=== PATIENT | female | born 1995 | race American Indian/Alaskan Native ===

== ENCOUNTER 2016-07-03 12:16 | Emergency (ER) | payer MEDICAID ==
[2016-07-03 12:18] VITALS: BMI 19.3
[2016-07-03] MEDS ORDERED: Sodium Chloride 0.9% 1,000 ML IV STA ×2 (13:00→15:20)
--- NOTE | 2016-07-03 13:00 | C.PDOC ---
History Of Present Illness Patient is a 20 y/o female that presents to the ED for evaluation of abdominal pain associated with vomiting, and diarrhea since today. Pt states that she ate crabs yesterday. Pt had history of cervical CA few years ago and was treated with chemotherapy, and radiation. Otherwise, denies any fever, chills, dysuria, hematuria, back pain, or any other associated symptoms at this time. Time Seen by Provider: 07/03/16 12:35 Chief Complaint (Nursing): Abdominal Pain History Per: Patient History/Exam Limitations: no limitations Current Symptoms Are (Timing): Still Present Location Of Pain/Discomfort: Diffuse Radiation Of Pain To:: None Quality Of Discomfort: "Pain" Associated Symptoms: Vomiting, Diarrhea. denies: Fever, Chills, Loss Of Appetite, Back Pain, Chest Pain, Constipation, Urinary Symptoms Exacerbating Factors: None Alleviating Factors: None Recent travel outside of the [place]: No Additional History Per: Patient Abnormal Vaginal Bleeding: No Past Medical History Reviewed: Historical Data, Nursing Documentation, Vital Signs Vital Signs: Last Vital Signs Temp 98.3 F 07/03/16 15:42 Pulse 64 07/03/16 15:42 Resp 20 07/03/16 15:42 BP 97/60 L 07/03/16 15:42 Pulse Ox 99 07/03/16 18:07 - Medical History PMH: Anemia, Bronchitis, Malignancy ("I HAD CERVICAL CANCER") Denies: Chronic Kidney Disease - [facility] Procedures CLOSURE SKIN & SUBCUTANEOUS NEC (04/13/14) CYSTOSCOPY NEC (02/20/14) GYNECOLOGIC EXAMINATION (02/20/14) INSERTION OF TOTALLY IMPLANTABLE VASC ACCESS DEVIC (03/21/14) REPOSITION JEJUNUM, OPEN APPROACH (06/05/15) RIGID PROCTOSIGMOIDOSCOPY (02/20/14) VACCINATION NEC (02/20/14) Family History: States: Unknown Family Hx - Social History Hx Tobacco Use: No Hx Alcohol Use: No Hx Substance Use: No - Immunization History Hx Tetanus Toxoid Vaccination: No Hx Influenza Vaccination: No Hx Pneumococcal Vaccination: No Review Of Systems Except As Marked, All Systems Reviewed And Found Negative. Constitutional: Negative for: Fever, Chills Gastrointestinal: Positive for: Vomiting, Abdominal Pain, Diarrhea. Negative for: Constipation, Hematochezia, Hematemesis Genitourinary: Negative for: Dysuria, Frequency, Hematuria Musculoskeletal: Negative for: Back Pain Physical Exam - Physical Exam Appears: Non-toxic, No Acute Distress, Other (actively vomiting) Skin: Normal Color, Warm, Dry Head: Atraumatic, Normacephalic Eye(s): bilateral: Normal Inspection, EOMI Neck: Normal ROM, Supple Chest: Symmetrical Cardiovascular: Rhythm Regular Respiratory: Normal Breath Sounds, No Rales, No Rhonchi, No Wheezing Gastrointestinal/Abdominal: Soft, Tenderness (diffuse; mostly upper abdomen), No Guarding, No Rebound Neurological/Psych: Oriented x3, Normal Speech, Normal Cognition ED Course And Treatment - Laboratory Results Result Diagrams: 07/03/16 17:10 07/03/16 13:08 O2 Sat by Pulse Oximetry: 99 (on RA) Pulse Ox Interpretation: Normal Progress Note: Labs ordered and reviewed. Patient was treated with IV fluids, Zofran, Pantoprazole, and Morphine. On reassessment, patient is resting comfortably, no acute distress. Abdomen remains soft. Patient tolerates po. CBC was repeated, WBC decreased, no bands. Patient was given copies of lab reports. Patient will be d/c home with PMD follow up. Disposition - Disposition Referrals: Keke Cross MD [Staff Provider] - Disposition: HOME/ ROUTINE Disposition Time: 18:05 Condition: IMPROVED Additional Instructions: Follow up with within 2-3 days. Return to Ed immediately if feel worse. Prescriptions: Famotidine [Pepcid] 20 mg PO BID #20 tab Ondansetron [Zofran Odt] 1 - 2 tab PO .Q4-6H PRN #20 odt PRN Reason: Nausea/Vomiting Instructions: Gastroenteritis (ED) - Clinical Impression Clinical Impression: Gastroenteritis - PA / BENCH REPAIR TECHNICIAN / Resident Statement MD/DO has reviewed & agrees with the documentation as recorded. - Scribe Statement The provider has reviewed the documentation as recorded by the Kojoibcindy Dobbins All medical record entries made by the Kojoibcindy were at my direction and personally dictated by me. I have reviewed the chart and agree that the record accurately reflects my personal performance of the history, physical exam, medical decision making, and the department course for this patient. I have also personally directed, reviewed, and agree with the discharge instructions and disposition.
[2016-07-03 13:12] LABS: BASO # 0.1 K/uL (0.0-0.2); BASO % 0.3 % (0.0-2.0); EOS # 0.1 K/uL (0.0-0.7); EOS % 0.3 % (0.0-4.0); HEMATOCRIT 37.4 % (34.0-47.0); LYMPH # 0.9 K/uL (1.0-4.3); MEAN CELL VOLUME 86.2 fL (81.0-99.0); MEAN CORPUSCULAR HEMOGLOBIN 26.5 pg (27.0-31.0); MEAN CORPUSCULAR HGB CONC 30.8 g/dL (33.0-37.0); MEAN PLATELET VOLUME 11.2 fL (7.2-11.7); MONO % 5.8 % (0.0-10.0); PLATELET COUNT 195 K/uL (130-400); RED CELL DISTRIBUTION WIDTH 13.8 % (11.5-14.5); WHITE BLOOD COUNT 17.6 K/uL (4.8-10.8)
[2016-07-03] MEDS ORDERED: Morphine 4 MG/ML VIAL ONE (13:19)
[2016-07-03] MEDS ORDERED: Sodium Chloride 0.9% 1,000 ML ONE (13:20)
[2016-07-03 13:26] LABS: CHLORIDE 103 mmol/L (98-107); POTASSIUM 3.5 mmol/L (3.6-5.2); SODIUM 140 mmol/L (132-148)
[2016-07-03 13:28] LABS: ALB/GLOB RATIO 1.3 (1.0-2.1); ALKALINE PHOSPHATASE 76 U/L (38-126); AMYLASE 136 U/L (30-110); AST/SGOT 23 U/L (14-36); BILIRUBIN,TOTAL 0.3 mg/dL (0.2-1.3); BLOOD UREA NITROGEN 21 mg/dL (7-17); CARBON DIOXIDE 19 mmol/L (22-30); GFR AFRICAN-AMERICAN > 60; GLUCOSE,RANDOM 136 mg/dL (65-105); NEUTROPHIL 81 % (50-75); TOTAL CELLS COUNTED 100; TOTAL PROTEIN 7.6 g/dL (6.3-8.3)
[2016-07-03 13:29] LABS: ALT/SGPT 19 U/L (9-52); CALCIUM 9.6 mg/dl (8.6-10.4); LARGE PLATELETS PRESENT
[2016-07-03 16:20] LABS: RBC URINE 3 /hpf (0-3); URINE BACTERIA RARE (<OCC); URINE BILIRUBIN NEGATIVE (NEGATIVE); URINE BLOOD NEGATIVE (NEGATIVE); URINE COLOR Yellow (YELLOW); URINE GLUCOSE (UA) NORMAL (Normal); URINE KETONE NEGATIVE (NEGATIVE); URINE LEUKOCYTE ESTERASE NEG Leu/uL (Negative); URINE PROTEIN NEGATIVE (NEGATIVE); URINE UROBILINOGEN NORMAL mg/dL (0.2-1.0); WBC URINE 12 /hpf (0-5)
[2016-07-03 17:13] LABS: BASO # 0.1 K/uL (0.0-0.2); BASO % 0.5 % (0.0-2.0); EOS % 0.1 % (0.0-4.0); HEMATOCRIT 30.7 % (34.0-47.0); LYMPH # 0.4 K/uL (1.0-4.3); LYMPH % 3.8 % (20.0-40.0); MEAN CELL VOLUME 85.4 fL (81.0-99.0); MEAN CORPUSCULAR HEMOGLOBIN 26.5 pg (27.0-31.0); MEAN CORPUSCULAR HGB CONC 31.1 g/dL (33.0-37.0); MEAN PLATELET VOLUME 10.3 fL (7.2-11.7); MONO # 0.3 K/uL (0.0-0.8); MONO % 2.6 % (0.0-10.0); PLATELET COUNT 145 K/uL (130-400); RED CELL DISTRIBUTION WIDTH 13.8 % (11.5-14.5); WHITE BLOOD COUNT 11.4 K/uL (4.8-10.8)
[2016-07-03 17:35] LABS: NEUTROPHIL 95 % (50-75); TOTAL CELLS COUNTED 100
[2016-07-03 17:36] LABS: LARGE PLATELETS PRESENT
[2016-07-03 18:22] VITALS: BP 100/61; PULSE 75; RESP 18; TEMP 98.6; O2SAT 100
== END 2016-07-03 18:22 | disposition home or self-care (01) ==
LOC: C.ER 12:16
DX: K52.9 Noninfective gastroenteritis and colitis, unspecified (principal)
CPT/HCPCS: 80053; 81001; 82150; 83690; 84703; 85025; 96361; 96374; 96375; 99285; C9113; J2270; J2405; J7040

== ENCOUNTER 2016-10-13 13:06 | Emergency (ER) | payer MEDICAID ==
[2016-10-13 13:07] VITALS: BMI 19.3
[2016-10-13 13:19] VITALS: RESP 20
[2016-10-13] MEDS ORDERED: Sodium Chloride 0.9% 1,000 ML ONE (13:39)
[2016-10-13] MEDS ORDERED: Sodium Chloride 0.9% 1,000 ML IV ONE (13:42)
[2016-10-13 14:04] LABS: BASO % 0.4 % (0.0-2.0); EOS # 0.1 K/uL (0.0-0.7); EOS % 0.8 % (0.0-4.0); HEMOGLOBIN 10.9 g/dL (11.0-16.0); LYMPH # 0.7 K/uL (1.0-4.3); LYMPH % 9.4 % (20.0-40.0); MEAN CELL VOLUME 86.7 fL (81.0-99.0); MEAN CORPUSCULAR HEMOGLOBIN 27.6 pg (27.0-31.0); MEAN CORPUSCULAR HGB CONC 31.8 g/dL (33.0-37.0); MONO # 0.1 K/uL (0.0-0.8); MONO % 1.2 % (0.0-10.0); NEUT # 6.7 K/uL (1.8-7.0); NEUT % 88.2 % (50.0-75.0); PLATELET COUNT 188 K/uL (130-400); RBC 3.97 Mil/uL (3.80-5.20); WHITE BLOOD COUNT 7.6 K/uL (4.8-10.8)
--- NOTE | 2016-10-13 14:05 | RAD ---
HISTORY: FEVER COMPARISON: CT chest abdomen pelvis with contrast performed 02/20/14 TECHNIQUE: Chest, one view. FINDINGS: LUNGS: No focal consolidation. Please note that chest x-ray has limited sensitivity for the detection of pulmonary masses. PLEURA: No significant pleural effusion identified. No definite pneumothorax . CARDIOVASCULAR: Heart size appears within normal limits. OSSEOUS STRUCTURES: No acute osseous abnormality identified. VISUALIZED UPPER ABDOMEN: Unremarkable. OTHER FINDINGS: None. IMPRESSION: No focal consolidation, significant pleural effusion, or definite pneumothorax identified.
[2016-10-13 14:10] LABS: HCG,QUALITATIVE URINE NEGATIVE (NEGATIVE)
[2016-10-13 14:15] LABS: ALBUMIN 4.1 g/dL (3.5-5.0)
[2016-10-13 14:18] LABS: ALB/GLOB RATIO 1.2 (1.0-2.1); AST/SGOT 20 U/L (14-36); BLOOD UREA NITROGEN 19 mg/dL (7-17); GFR AFRICAN-AMERICAN > 60; GFR NON-AFRICAN AMERICAN > 60
[2016-10-13 14:19] LABS: ALT/SGPT 20 U/L (9-52); CALCIUM 9.6 mg/dl (8.6-10.4)
[2016-10-13 14:20] LABS: SQUAMOUS EPITHIAL 2 /hpf (0-5); URINE BILIRUBIN NEGATIVE (NEGATIVE); URINE BLOOD 2+ (NEGATIVE); URINE CLARITY Clear (Clear); URINE COLOR Yellow (YELLOW); URINE GLUCOSE (UA) NORMAL (Normal); URINE LEUKOCYTE ESTERASE NEG Leu/uL (Negative); URINE NITRATE NEGATIVE (NEGATIVE); URINE PROTEIN NEGATIVE (NEGATIVE); URINE UROBILINOGEN NORMAL mg/dL (0.2-1.0)
[2016-10-13 14:38] LABS: BANDS 1 % (0-2); EOSINOPHIL 1 % (0-4); LYMPHOCYTE 8 % (20-40); NEUTROPHIL 90 % (50-75); PLATELET ESTIMATE NORMAL (NORMAL); TOTAL CELLS COUNTED 100
--- NOTE | 2016-10-13 15:33 | C.PDOC ---
History Of Present Illness 21 y/o female presents to the ED with complaints of body aches, fever, and chills since earlier today while at work. Pt has hx of cervical CA, currently in remission s/p chemotherapy and radiation (last treatment 2 years ago). 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 She denies cough, runny nose, sore throat, vomiting, diarrhea, dysuria/hematuria, vaginal discharge. Time Seen by Provider: 10/13/16 13:31 Chief Complaint (Nursing): Flu-like Symptoms History Per: Patient History/Exam Limitations: no limitations Onset/Duration Of Symptoms: Hrs Current Symptoms Are (Timing): Still Present Location Of Pain: Diffuse Myalgias Sick Contacts (Context): None Associated Symptoms: Fever, Chills. denies: Sore Throat, Cough, Vomiting, Diarrhea Severity: Moderate Past Medical History Reviewed: Historical Data, Nursing Documentation, Vital Signs Vital Signs: Last Vital Signs Temp 98.8 F 10/13/16 15:46 Pulse 103 H 10/13/16 15:46 Resp 20 10/13/16 15:46 BP 108/60 10/13/16 15:46 Pulse Ox 98 10/13/16 15:46 - Medical History PMH: Anemia, Bronchitis, Malignancy ("I HAD CERVICAL CANCER") - [facility] Procedures CLOSURE SKIN & SUBCUTANEOUS NEC (04/13/14) CYSTOSCOPY NEC (02/20/14) GYNECOLOGIC EXAMINATION (02/20/14) INSERTION OF TOTALLY IMPLANTABLE VASC ACCESS DEVIC (03/21/14) REPOSITION JEJUNUM, OPEN APPROACH (06/05/15) RIGID PROCTOSIGMOIDOSCOPY (02/20/14) VACCINATION NEC (02/20/14) Family History: States: No Known Family Hx - Social History Hx Tobacco Use: No Hx Alcohol Use: No Hx Substance Use: No - Immunization History Hx Tetanus Toxoid Vaccination: No Hx Influenza Vaccination: No Hx Pneumococcal Vaccination: No Review Of Systems Except As Marked, All Systems Reviewed And Found Negative. Constitutional: Positive for: Fever, Chills, Other (myalgias) ENT: Negative for: Nose Discharge, Throat Pain Cardiovascular: Negative for: Chest Pain, Palpitations Respiratory: Negative for: Cough, Shortness of Breath Gastrointestinal: Negative for: Nausea, Vomiting, Abdominal Pain, Diarrhea Genitourinary: Negative for: Dysuria, Hematuria, Vaginal Discharge, Vaginal Bleeding Physical Exam - Physical Exam Appears: Well, Non-toxic, In Acute Distress (mildly uncomfortable, shivering) Skin: Warm, Dry, No Rash Head: Normacephalic Ear(s): Bilateral: Normal Nose: Normal Oral Mucosa: Moist Throat: Normal, No Erythema Neck: Normal, Normal ROM, Supple Cardiovascular: Rhythm Regular (mildly tachycardic ) Respiratory: Normal Breath Sounds, No Rales, No Rhonchi, No Wheezing Gastrointestinal/Abdominal: Normal Exam, Bowel Sounds, Soft, No Tenderness Back: No CVA Tenderness Extremity: Normal ROM Extremity: Bilateral: Atraumatic Neurological/Psych: Oriented x3 ED Course And Treatment - Laboratory Results Result Diagrams: 10/13/16 13:59 10/13/16 13:59 O2 Sat by Pulse Oximetry: 99 (room air) Pulse Ox Interpretation: Normal - Radiology CXR: Interpreted by Me, Viewed By Me CXR Interpretation: Yes: No Acute Disease. No: Infiltrates Progress Note: Plan: Blood work, UA, CXR ordered and reviewed. Patient given IV NS bolus, IV toadol, PO tylenol. Reevaluation Time: 15:35 Reassessment Condition: Improved (On reassessment, patient is resting comfortably and states she feels much better. Fever has dropped appropriately, and CXR/UA unremarkable. Symptoms likely due to viral syndrome. Patient given Rx for Naprosyn, and was instructed to drink plenty of fluids, get rest, and follow up with PMD in 1-2 days. She understands she should return to Ed if symptoms worsen.) Disposition Counseled Patient/Family Regarding: Studies Performed, Diagnosis, Need For Followup, Rx Given - Disposition Referrals: Keke Cross MD [Staff Provider] - Disposition: HOME/ ROUTINE Disposition Time: 15:35 Condition: STABLE Additional Instructions: FOLLOW UP WITH YOUR DOCTOR IN 1-2 DAYS USE MEDICATION NEEDED FOR FEVER/PAIN DRINK PLENTY OF FLUIDS RETURN TO ER IF SYMPTOMS WORSEN Prescriptions: Naproxen [Naprosyn Tab] 375 mg PO BID PRN #20 tab PRN Reason: pain Instructions: Viral Syndrome (ED) Forms: Work Excuse Print Language: PORTUGUESE - POA Present On Arrival: None - Clinical Impression Clinical Impression: Viral syndrome - Scribe Statement The provider has reviewed the documentation as recorded by the Tod Dixon Provider Attestation: All medical record entries made by the Scribe were at my direction and personally dictated by me. I have reviewed the chart and agree that the record accurately reflects my personal performance of the history, physical exam, medical decision making, and the department course for this patient. I have also personally directed, reviewed, and agree with the discharge instructions and disposition.
[2016-10-13 15:46] VITALS: BP 108/60; PULSE 103; TEMP 98.8
[2016-10-17 17:37] VITALS: O2SAT 99
== END 2016-10-13 15:48 | disposition home or self-care (01) ==
LOC: C.ER 13:06
DX: B34.9 Viral infection, unspecified (principal)
CPT/HCPCS: 71010; 80053; 81001; 84703; 85025; 87040; 87086; 96361; 96374; 99283; J1885; J7040

== ENCOUNTER 2016-11-17 17:43 | Emergency (ER) | payer MEDICAID ==
[2016-11-17 17:43] VITALS: BMI 19.3
[2016-11-17 17:50] VITALS: O2SAT 100
[2016-11-17 18:21] LABS: RBC URINE 3 /hpf (0-3); URINE BILIRUBIN NEGATIVE (NEGATIVE); URINE BLOOD 1+ (NEGATIVE); URINE COLOR Straw (YELLOW); URINE GLUCOSE (UA) NORMAL (Normal); URINE KETONE NEGATIVE (NEGATIVE); URINE LEUKOCYTE ESTERASE NEG Leu/uL (Negative); URINE PROTEIN NEGATIVE (NEGATIVE); URINE UROBILINOGEN NORMAL mg/dL (0.2-1.0); WBC URINE 2 /hpf (0-5)
[2016-11-17 18:43] LABS: BASO % 0.6 % (0.0-2.0); EOS # 0.2 K/uL (0.0-0.7); EOS % 2.9 % (0.0-4.0); HEMATOCRIT 35.1 % (34.0-47.0); LYMPH # 1.5 K/uL (1.0-4.3); MEAN CELL VOLUME 86.3 fL (81.0-99.0); MEAN CORPUSCULAR HEMOGLOBIN 28.1 pg (27.0-31.0); MEAN CORPUSCULAR HGB CONC 32.5 g/dL (33.0-37.0); MEAN PLATELET VOLUME 10.5 fL (7.2-11.7); MONO # 0.5 K/uL (0.0-0.8); MONO % 6.4 % (0.0-10.0); NRBC % 0.1 % (0.0-2.0); RED CELL DISTRIBUTION WIDTH 13.9 % (11.5-14.5); WHITE BLOOD COUNT 7.3 K/uL (4.8-10.8)
--- NOTE | 2016-11-17 18:43 | C.PDOC ---
History Of Present Illness 21 y/o female with Hx of treated Cervical cancer presents to ED with complaints of rectal bleeding for 4 days. Patient states she noticed blood in stool with every bowel movement when cleaning with paper. Patient reports past occasional fissure type tears but not like this and denies rectal pain, abdominal pain, dizziness, sob, cough or any other complaints at this time. Time Seen by Provider: 11/17/16 17:50 Chief Complaint (Nursing): GI Problem History Per: Patient History/Exam Limitations: no limitations Onset/Duration Of Symptoms: Days Current Symptoms Are (Timing): Still Present Past Medical History Reviewed: Historical Data, Nursing Documentation, Vital Signs Vital Signs: Last Vital Signs Temp 98.7 F 11/17/16 17:49 Pulse 74 11/17/16 17:49 Resp 18 11/17/16 17:49 BP 112/77 11/17/16 17:49 Pulse Ox 100 11/17/16 18:46 - Medical History PMH: Anemia, Bronchitis, Malignancy ("I HAD CERVICAL CANCER") - [facility] Procedures CLOSURE SKIN & SUBCUTANEOUS NEC (04/13/14) CYSTOSCOPY NEC (02/20/14) GYNECOLOGIC EXAMINATION (02/20/14) INSERTION OF TOTALLY IMPLANTABLE VASC ACCESS DEVIC (03/21/14) REPOSITION JEJUNUM, OPEN APPROACH (06/05/15) RIGID PROCTOSIGMOIDOSCOPY (02/20/14) VACCINATION NEC (02/20/14) Family History: States: Unknown Family Hx - Social History Hx Tobacco Use: No Hx Alcohol Use: No Hx Substance Use: No - Immunization History Hx Tetanus Toxoid Vaccination: No Hx Influenza Vaccination: No Hx Pneumococcal Vaccination: No Review Of Systems Except As Marked, All Systems Reviewed And Found Negative. Constitutional: Negative for: Fever, Chills Respiratory: Negative for: Shortness of Breath Gastrointestinal: Positive for: Hematochezia. Negative for: Nausea, Vomiting, Abdominal Pain, Diarrhea, Rectal Pain Musculoskeletal: Negative for: Back Pain Skin: Negative for: Rash Neurological: Negative for: Dizziness Physical Exam - Physical Exam Appears: Non-toxic, No Acute Distress Skin: Normal Color, Warm, No Rash Head: Atraumatic Oral Mucosa: Moist Chest: Symmetrical Cardiovascular: Rhythm Regular Respiratory: Normal Breath Sounds, No Rales, No Rhonchi, No Wheezing Gastrointestinal/Abdominal: Soft, No Tenderness, No Guarding, No Rebound Rectal: Normal Exam, Other (No trauma, no tears noted) Neurological/Psych: Oriented x3, Normal Speech, Normal Cognition ED Course And Treatment - Laboratory Results Result Diagrams: 11/17/16 18:37 11/17/16 18:37 Lab Interpretation: Normal O2 Sat by Pulse Oximetry: 100 (RA) Pulse Ox Interpretation: Normal Reevaluation Time: 19:09 Reassessment Condition: Improved (Stool guaiac negative in ED and exam is normal.) Disposition - Disposition Disposition: HOME/ ROUTINE Disposition Time: 19:09 Condition: IMPROVED Instructions: Rectal Bleeding (ED) Forms: [place] (Bulgarian) - Clinical Impression Clinical Impression: Rectal bleeding - Scribe Statement The provider has reviewed the documentation as recorded by the Kojoibcindy Stevenson All medical record entries made by the Kojoibcindy were at my direction and personally dictated by me. I have reviewed the chart and agree that the record accurately reflects my personal performance of the history, physical exam, medical decision making, and the department course for this patient. I have also personally directed, reviewed, and agree with the discharge instructions and disposition.
[2016-11-17 18:55] LABS: CHLORIDE 104 mmol/L (98-107); POTASSIUM 3.5 mmol/L (3.6-5.2); SODIUM 141 mmol/L (132-148)
[2016-11-17 18:57] LABS: BILIRUBIN,TOTAL 0.5 mg/dL (0.2-1.3); GFR AFRICAN-AMERICAN > 60
[2016-11-17 18:58] LABS: ALB/GLOB RATIO 1.3 (1.0-2.1); ALKALINE PHOSPHATASE 79 U/L (38-126); ALT/SGPT 27 U/L (9-52); AST/SGOT 21 U/L (14-36); BLOOD UREA NITROGEN 13 mg/dL (7-17); CARBON DIOXIDE 25 mmol/L (22-30); GLUCOSE,RANDOM 72 mg/dL (65-105); TOTAL PROTEIN 7.1 g/dL (6.3-8.3)
[2016-11-17 18:59] LABS: CALCIUM 9.2 mg/dl (8.6-10.4)
[2016-11-17 19:25] VITALS: BP 108/64; PULSE 70; RESP 16; TEMP 98.2
== END 2016-11-17 19:25 | disposition home or self-care (01) ==
LOC: C.ER 17:43
DX: K92.1 Melena (principal)
CPT/HCPCS: 80053; 81001; 84703; 85025; 85610; 85730; 99284; G0328

== ENCOUNTER 2016-11-21 09:08 | Observation (INO) | payer MEDICAID ==
[2016-11-21 09:17] VITALS: BMI 19.7
--- NOTE | 2016-11-21 09:27 | C.PDOC ---
History Of Present Illness 21 yo female w/PMHx of cervical CA come in for evaluation of epigastric pain, N/ V/D developed since 3 AM today " after had bad shrimp". Pt sts, " it smelled bad and I just tasted it, not even swallow". Pt sts, had multiple episodes of watery diarrhea and vomiting. Denies fever, chills, weakness, CP, SOB, wheezing , throat swelling or tightness. hematemesis, melena, hematoschezia, back pain, UTi sx, rash. AT the time of evaluation, pt is actively vomiting. records from previous ED visits review, last visit was on 11/17/16 when pt was evaluated due to rectal bleeding r/o hemorrhoids. Time Seen by Provider: 11/21/16 09:18 Chief Complaint (Nursing): Abdominal Pain History Per: Patient History/Exam Limitations: no limitations Onset/Duration Of Symptoms: Hrs Current Symptoms Are (Timing): Still Present Location Of Pain/Discomfort: Epigastric Radiation Of Pain To:: None Quality Of Discomfort: "Pain" Associated Symptoms: Nausea, Vomiting, Diarrhea. denies: Fever, Chills, Loss Of Appetite, Back Pain, Chest Pain, Constipation, Urinary Symptoms Exacerbating Factors: None Alleviating Factors: None Recent travel outside of the [place]: No Additional History Per: Patient Past Medical History Reviewed: Historical Data, Nursing Documentation, Vital Signs Vital Signs: Last Vital Signs Temp 98.5 F 11/21/16 13:47 Pulse 70 11/21/16 13:47 Resp 18 11/21/16 13:47 BP 112/70 11/21/16 13:47 Pulse Ox 99 11/21/16 14:09 - Medical History PMH: Anemia, Bronchitis, Malignancy ("I HAD CERVICAL CANCER") Denies: Chronic Kidney Disease - [facility] Procedures CLOSURE SKIN & SUBCUTANEOUS NEC (04/13/14) CYSTOSCOPY NEC (02/20/14) GYNECOLOGIC EXAMINATION (02/20/14) INSERTION OF TOTALLY IMPLANTABLE VASC ACCESS DEVIC (03/21/14) REPOSITION JEJUNUM, OPEN APPROACH (06/05/15) RIGID PROCTOSIGMOIDOSCOPY (02/20/14) VACCINATION NEC (02/20/14) Family History: States: Unknown Family Hx - Social History Hx Tobacco Use: No Hx Alcohol Use: No Hx Substance Use: No - Immunization History Hx Tetanus Toxoid Vaccination: No Hx Influenza Vaccination: No Hx Pneumococcal Vaccination: No Review Of Systems Except As Marked, All Systems Reviewed And Found Negative. Constitutional: Negative for: Fever, Chills Cardiovascular: Negative for: Chest Pain, Palpitations Respiratory: Negative for: Cough, Shortness of Breath, Wheezing Gastrointestinal: Positive for: Nausea, Vomiting, Abdominal Pain (epigastric), Diarrhea. Negative for: Constipation, Melena, Hematochezia, Hematemesis, Rectal Pain Genitourinary: Negative for: Dysuria, Frequency, Hematuria, Vaginal Discharge, Vaginal Bleeding Musculoskeletal: Negative for: Back Pain Skin: Negative for: Rash, Bruising Neurological: Negative for: Headache, Dizziness Physical Exam - Physical Exam Appears: Well, Non-toxic, Other (vomiting) Skin: Normal Color, Warm, Dry, No Rash Eye(s): bilateral: PERRL Nose: No Flaring, No Discharge Throat: No Drooling, Other (Uvula midline, no edema.) Neck: Normal, Supple Cardiovascular: Rhythm Regular, No Friction Rub, No Murmur, No JVD Respiratory: No Decreased Breath Sounds, No Accessory Muscle Use, No Rales, No Rhonchi, No Stridor, No Wheezing Gastrointestinal/Abdominal: Soft, Tenderness (mild epigastric), No Distention, No Guarding, No Rebound Back: No CVA Tenderness Extremity: No Pedal Edema, No Deformity Neurological/Psych: Oriented x3, Normal Speech ED Course And Treatment - Laboratory Results Result Diagrams: 11/21/16 09:46 11/21/16 09:46 O2 Sat by Pulse Oximetry: 99 (RA) Pulse Ox Interpretation: Normal Progress Note: Blood work, urinalysis ordered and reviewed. Patient was given Pepcid, Zofran, and IV fluids. ED OBSERVATION Discharge: Yes Date of observation admission: 11/21/16 Time of observation admission: 09:57 - Observation admission statement Patient is being placed in observation because:: Abdominal pain, N/V/D - Goals of Observation Goals of observation are:: Diagnostics, sx tx, re-evaluation - Progress Note Progress Note: 11/21/16 At 10:48, pt resting in bed. Pt still c/o nausea and epigastric pain, reports had one episode of vomiting. Afebrile, hemodynamicaly stable. Non-toxic. Abd: benign, (-) guarding, (-) rebound. back: (-) CVA tenderness. Blood work review- appears without acute abnormalities. Await for UA. At 12:28, pt resting comfortably, not in any apparent distress. ABd: benign. Blodo work review and appears normal. UA- normal study. At 13:31, pt reports, " feels better". Pt was given PO challenge and tolerate well. Afebrile, hemodynamicaly stable. Non-toxic. Abd: benign, (-) guarding, (-) rebound. back: (-) CVA tenderness. Pt has clinical findings c/w vomiting, diarrhea. Pt advised on course of ds. ref. to f/u with PMD in 2-3 days for re-eval. return to ED if any worsening or new changes. Disposition Counseled Patient/Family Regarding: Studies Performed, Diagnosis, Need For Followup, Rx Given - Disposition Disposition: HOME/ ROUTINE Disposition Time: 13:35 Condition: STABLE - Clinical Impression Clinical Impression: Epigastric abdominal pain, Vomiting, Diarrhea - PA / USER EXPERIENCE ARCHITECT / Resident Statement MD/DO has reviewed & agrees with the documentation as recorded. - Scribe Statement The provider has reviewed the documentation as recorded by the Kojoibe Elias Dobbins All medical record entries made by the Tod were at my direction and personally dictated by me. I have reviewed the chart and agree that the record accurately reflects my personal performance of the history, physical exam, medical decision making, and the department course for this patient. I have also personally directed, reviewed, and agree with the discharge instructions and disposition.
[2016-11-21] MEDS ORDERED: Sodium Chloride 0.9% 1,000 ML IV ONE (09:39)
[2016-11-21] MEDS ORDERED: Sodium Chloride 0.9% 1,000 ML ONE (09:42)
[2016-11-21 10:00] LABS: BASO % 0.3 % (0.0-2.0); EOS # 0.1 K/uL (0.0-0.7); EOS % 0.6 % (0.0-4.0); HEMATOCRIT 34.6 % (34.0-47.0); LYMPH # 1.4 K/uL (1.0-4.3); MEAN CELL VOLUME 85.4 fL (81.0-99.0); MEAN CORPUSCULAR HEMOGLOBIN 27.4 pg (27.0-31.0); MEAN CORPUSCULAR HGB CONC 32.1 g/dL (33.0-37.0); MEAN PLATELET VOLUME 10.9 fL (7.2-11.7); MONO # 0.4 K/uL (0.0-0.8); MONO % 3.8 % (0.0-10.0); RED CELL DISTRIBUTION WIDTH 13.4 % (11.5-14.5); WHITE BLOOD COUNT 11.5 K/uL (4.8-10.8)
[2016-11-21 10:05] LABS: CHLORIDE 107 mmol/L (98-107); POTASSIUM 3.4 mmol/L (3.6-5.2); SODIUM 140 mmol/L (132-148)
[2016-11-21 10:07] LABS: BILIRUBIN,TOTAL 0.4 mg/dL (0.2-1.3); GFR AFRICAN-AMERICAN > 60
[2016-11-21 10:08] LABS: ALB/GLOB RATIO 1.3 (1.0-2.1); ALKALINE PHOSPHATASE 88 U/L (38-126); ALT/SGPT 29 U/L (9-52); AST/SGOT 21 U/L (14-36); BLOOD UREA NITROGEN 12 mg/dL (7-17); CALCIUM 9.5 mg/dl (8.6-10.4); CARBON DIOXIDE 21 mmol/L (22-30); GLUCOSE,RANDOM 143 mg/dL (65-105); TOTAL PROTEIN 6.8 g/dL (6.3-8.3)
[2016-11-21 11:23] LABS: RBC URINE 1 /hpf (0-3); URINE BILIRUBIN NEGATIVE (NEGATIVE); URINE BLOOD NEGATIVE (NEGATIVE); URINE COLOR Yellow (YELLOW); URINE GLUCOSE (UA) NORMAL (Normal); URINE HYALINE CAST 0-2 /lpf (0-2); URINE KETONE NEGATIVE (NEGATIVE); URINE LEUKOCYTE ESTERASE NEG Leu/uL (Negative); URINE PROTEIN NEGATIVE (NEGATIVE); URINE UROBILINOGEN NORMAL mg/dL (0.2-1.0); WBC URINE 1 /hpf (0-5)
[2016-11-21 13:47] VITALS: BP 112/70; PULSE 70; RESP 18; TEMP 98.5
[2016-11-21 14:09] VITALS: O2SAT 99
== END 2016-11-21 13:32 | disposition home or self-care (01) ==
LOC: C.ER 09:08 → C.9OBSV 09:45
PROVIDERS: ADMIT Emergency Medicine; ATTEND Emergency Medicine
DX: R10.13 Epigastric pain (principal); R19.7 Diarrhea, unspecified; R11.10 Vomiting, unspecified
CPT/HCPCS: 80053; 81001; 83690; 84703; 85025; 96360; 96374; C9113; G0378; J1885; J2405; J2765; J7040

== ENCOUNTER 2018-03-16 12:43 | Emergency (ER) | payer MEDICAID ==
[2018-03-16 12:44] VITALS: BMI 19.7
[2018-03-16 12:56] VITALS: TEMP 99.4
[2018-03-16 14:07] LABS: BASO # 0.1 K/uL (0.0-0.2); BASO % 0.8 % (0.0-2.0); EOS # 0.1 K/uL (0.0-0.7); EOS % 2.2 % (0.0-4.0); HEMOGLOBIN 11.9 g/dL (11.0-16.0); LYMPH % 14.8 % (20.0-40.0); MEAN CORPUSCULAR HEMOGLOBIN 28.4 pg (27.0-31.0); MEAN CORPUSCULAR HGB CONC 32.6 g/dL (33.0-37.0); MEAN PLATELET VOLUME 11.3 fL (7.2-11.7); MONO # 0.5 K/uL (0.0-0.8); MONO % 7.4 % (0.0-10.0); NEUT % 74.8 % (50.0-75.0); RBC 4.21 Mil/uL (3.80-5.20); RED CELL DISTRIBUTION WIDTH 13.9 % (11.5-14.5); WHITE BLOOD COUNT 6.7 K/uL (4.8-10.8)
--- NOTE | 2018-03-16 14:07 | C.PDOC ---
History Of Present Illness 22 year old female presents to the ED via EMS for evaluation of vaginal bleeding with suprapubic pain immediately after relations 2-3 days ago. The patient reports prior vaginal bleeding after remission. She has not taken medication for the pain. Denies fever, nausea, vomiting, back pain, or any other associated symptoms. Time Seen by Provider: 03/16/18 13:24 Chief Complaint (Nursing): Female Genitourinary History Per: Patient History/Exam Limitations: no limitations Onset/Duration Of Symptoms: Days Current Symptoms Are (Timing): Still Present Past Medical History Reviewed: Historical Data, Nursing Documentation, Vital Signs Vital Signs: Last Vital Signs Temp 99.4 F 03/16/18 12:46 Pulse 71 03/16/18 12:46 Resp 18 03/16/18 12:46 BP 153/108 H 03/16/18 12:46 Pulse Ox 100 03/16/18 12:46 - Medical History PMH: Anemia, Bronchitis, Malignancy ("I HAD CERVICAL CANCER") Denies: Chronic Kidney Disease - [facility] Procedures CLOSURE SKIN & SUBCUTANEOUS NEC (04/13/14) CYSTOSCOPY NEC (02/20/14) GYNECOLOGIC EXAMINATION (02/20/14) INSERTION OF TOTALLY IMPLANTABLE VASC ACCESS DEVIC (03/21/14) REPOSITION JEJUNUM, OPEN APPROACH (06/05/15) RIGID PROCTOSIGMOIDOSCOPY (02/20/14) VACCINATION NEC (02/20/14) Family History: States: Unknown Family Hx - Social History Hx Tobacco Use: No Hx Alcohol Use: No Hx Substance Use: No - Immunization History Hx Tetanus Toxoid Vaccination: No Hx Influenza Vaccination: No Hx Pneumococcal Vaccination: No Review Of Systems Except As Marked, All Systems Reviewed And Found Negative. Constitutional: Negative for: Fever Gastrointestinal: Positive for: Abdominal Pain (suprapubic.). Negative for: Nausea, Vomiting Genitourinary: Positive for: Vaginal Bleeding Musculoskeletal: Negative for: Back Pain Physical Exam - Physical Exam Additional Physical Exam Comments: Gen: VS reviewed, alert, well developed, well nourished, nontoxic, mild distress Eye: EOMI, PERRL Neck: no JVD, supple, no adenopathy CV: regular rate, regular rhythm, no rubs,no murmur, S1, S2 Pulm: no distress, clear to auscultation, no wheeze, no rhonchi, breath sounds equal, no rales Abd: soft, nontender, no guarding, no rebound, no rigidity Extremities: no edema Skin: good color, no rash, no cyanosis Psych: responds appropriately to questions, normal affect Neuro: oriented x3, CN2-12 intact grossly, motor intact, sensation intact ED Course And Treatment - Laboratory Results Result Diagrams: 03/16/18 13:58 O2 Sat by Pulse Oximetry: 100 (RA) Pulse Ox Interpretation: Normal Medical Decision Making Medical Decision Making: Plan: -Blood sent. POC Urine Preg. Pelvic Exam US Transvag 1500: pelvic exam female rn surgical Haroon french: there was a thick white cervical discharge on inspection, no foul odor, there was positive CMT, no overt adnexal tenderness. in retrospect, there was adnexal massess on TVUS to suggest TOA. patient admits to hx of chlamydia, will empirically tx for PID, no s/s of sepsis, patient appears stable for outpt tx and states that she can see her gyn physician tomorrow. Disposition - Disposition Disposition: HOME/ ROUTINE Disposition Time: 15:26 Condition: STABLE Additional Instructions: Return for any new or worsenign symptoms especially fever greater than 100.4, worsening pain. Call your poundmaster today or tomorrow to make an appointment. BETHANY MONTGOMERY, thank you for letting us take care of you today. Your provider was Dr. Jeffrey Rodriguez and you were treated for VAGINAL BLEEDING/PID. The emergency medical care you received today was directed at your acute symptoms. If you were prescribed any medication, please fill it and take as directed. It may take several days for your symptoms to resolve. Return to the Emergency Department if your symptoms worsen, do not improve, or if you have any other problems. Please contact your doctor or call one of the physicians/clinics you have been referred to that are listed on the Patient Visit Information form that is included in your discharge packet. Bring any paperwork you were given at d ischarge with you along with any medications you are taking to your follow up visit. Our treatment cannot replace ongoing medical care by a primary care provider outside of the emergency department. Thank you for allowing the [facility] team to be part of your care today. If you had an X-Ray or CT scan: A Radiologist will review the ED reading if any change in treatment is needed we will contact you. If you had a blood, urine, or wound culture: It will take several days for the results, if any change in treatment is needed we will contact you. If you had an STI test: It will take 48 hours for the results. Please call after 1 week if you have not heard back. Instructions: Pelvic Inflammatory Disease Forms: [facility] (Czech), Work/School/Gym Excuse - Clinical Impression Clinical Impression: PID (acute pelvic inflammatory disease) - Scribe Statement The provider has reviewed the documentation as recorded by the Scribe (Stephani Tran) Provider Attestation: All medical record entries made by the Scribe were at my direction and personally dictated by me. I have reviewed the chart and agree that the record accurately reflects my personal performance of the history, physical exam, medical decision making, and the department course for this patient. I have also personally directed, reviewed, and agree with the discharge instructions and disposition.
--- NOTE | 2018-03-16 15:07 | US ---
Date of service: 03/16/2018 HISTORY: excessive vaginal bleeding,cervical CA remission status post chemotherapy and radiation in 2015. COMPARISON: A transvaginal 12/06/2014 ultrasound TECHNIQUE: Transvaginal FINDINGS: UTERUS: Measures 4.9 x 2.1 x 3.8 cm. Small and retroverted. No fibroid or other mass lesion seen. 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 ENDOMETRIUM: There is fluid seen apparently in each intrauterine cavity/each endometrial cavity. Within this fluid there is some complex material either blood and/or debris. CERVIX: Evaluation of the cervix is extremely limited according to the technologist the probe kept falling out when trying to assess the cervix. RIGHT OVARY: Not visualized LEFT OVARY: Not visualized. FREE FLUID: No significant free fluid noted. OTHER FINDINGS: None. IMPRESSION: Markedly limited exam. Visualization and anatomical demarcation of the cervix separate from the uterine body is difficult to appreciate on this exam. There are 2 apparent intrauterine cavities a compatible with a uterine developmental variant and within each endometrial cavity there is fluid and/or liquified blood. A distal cervical stenosis and/or neoplastic stricture here is 1 consideration. Images of the bladder are not visually included on this exam. Bladder pathology is not excluded. Neither ovary could be visualized Comments: Consider bladder ultrasound and MRI of the pelvis for further evaluation if clinically indicated. The anatomy is markedly altered and apparent stenosis and/or compromise is present when trying to evaluate the cervix according to the technologist performing the exam.
[2018-03-16 15:14] LABS: SQUAMOUS EPITHIAL 1 /hpf (0-5); URINE BILIRUBIN NEGATIVE (NEGATIVE); URINE BLOOD 3+ (NEGATIVE); URINE CLARITY Clear (Clear); URINE COLOR Straw (YELLOW); URINE GLUCOSE (UA) NORMAL (Normal); URINE LEUKOCYTE ESTERASE 3+ Leu/uL (Negative); URINE PROTEIN NEGATIVE (NEGATIVE); URINE UROBILINOGEN NORMAL mg/dL (0.2-1.0)
[2018-03-16] MEDS ORDERED: cefTRIAXone (Rocephin) 250 mg Inj IM STA (15:22)
[2018-03-16 16:11] VITALS: BP 136/90; PULSE 98; RESP 20; O2SAT 98
== END 2018-03-16 16:13 | disposition home or self-care (01) ==
LOC: C.ER 12:43
DX: N73.0 Acute parametritis and pelvic cellulitis (principal)
CPT/HCPCS: 76830; 81001; 85025; 87491; 87591; 96372; 99285; J0696